=== PATIENT | male | born 1985 | race Caucasian/White ===

== ENCOUNTER 2017-05-16 09:43 | Emergency (ER) | payer OTHER ==
[~2017-05-16] VITALS: Ht 175.3 cm; Wt 107.0 kg
[2017-05-16 09:43] VITALS: BP 137/73
[2017-05-16] MEDS ORDERED: IBUP-1022 PO (09:52)
== END 2017-05-16 10:34 | disposition home or self-care (01) ==
LOC: M ED 09:43
DX: S83.401A Sprain of unspecified collateral ligament of right knee, initial encounter (principal); X50.1XXA Overexertion from prolonged static or awkward postures, initial encounter; Y92.9 Unspecified place or not applicable; Y93.9 Activity, unspecified; Y99.1 Military activity

== ENCOUNTER 2018-09-28 10:41 | Emergency (ER) | payer OTHER ==
[~2018-09-28] VITALS: Ht 180.3 cm; Wt 100.0 kg
[~2018-09-28 10:41] MED LIST: IBUP-1022 PO
[2018-09-28] MEDS ORDERED: SILD50TA (10:46)
[2018-09-28] MEDS ORDERED: KETOROLAC 60 MG/2 ML VIAL (J1885) IM ONE (12:00)
[2018-09-28] MEDS ORDERED: diazePAM 5 MG TAB PO ONE (12:00)
[2018-09-28] MEDS ORDERED: CYCL10TA PO (12:50)
[2018-09-28] MEDS ORDERED: NAPR-885 PO (12:50)
[2018-09-28 12:57] VITALS: BP 112/77
--- NOTE | 2018-09-28 14:58 | ECGEPIP ---
Stationary ECG Study [facility] - ED Test Date: 2018-09-28 Pat Name: LISA LANE Department: Room: - Gender: M [employer] Ro[employer]er: susanngoc : 1985 Requested By: ANTWAN Barragan PA-C Order Number: [id number] Reading MD: Kacey Bowden Measurements Intervals [place] Rate: 58 P: 44 MI: 165 QRS: 43 QRSD: 96 T: 39 QT: 394 QTc: 390 Interpretive Statements SINUS BRADYCARDIA ST ELEVATION, PROBABLY EARLY REPOLARIZATION, CLINICAL CORRELATION NO PRIOR FOR COMPARISON Electronically Signed On 09-28-2018 14:57:35 EST by Kacey Bowden
== END 2018-09-28 12:58 | disposition home or self-care (01) ==
LOC: M ED 10:41
DX: M54.2 Cervicalgia (principal)
CPT/HCPCS: 93005; 96372; 99284; J1885